=== PATIENT | male | born 1985 | race Two or more races ===

== ENCOUNTER 2018-10-05 13:50 | Emergency (ER) | payer OTHER ==
[~2018-10-05] VITALS: Ht 152.4 cm; Wt 55.0 kg
[2018-10-05 15:40] VITALS: BP 138/89
== END 2018-10-05 15:41 | disposition home or self-care (01) ==
LOC: ER 13:50
DX: M54.5 Low back pain (principal); H10.023 Other mucopurulent conjunctivitis, bilateral; H01.006 Unspecified blepharitis left eye, unspecified eyelid; H01.003 Unspecified blepharitis right eye, unspecified eyelid
CPT/HCPCS: 99283